=== PATIENT | female | born 1995 | race Two or more races ===

== ENCOUNTER 2020-01-04 15:19 | Emergency (ER) | payer OTHER ==
[~2020-01-04] VITALS: Ht 172.7 cm; Wt 77.1 kg
[2020-01-04 15:24] VITALS: BP 149/107
[2020-01-04 16:17] LABS: APPEARANCE,URINE SLIGHTLY CLOUDY; BILIRUBIN, URINE NEGATIVE (NEGATIVE); GLUCOSE, URINE (UA) NEGATIVE (NEGATIVE); KETONES,URINE 4+ (NEGATIVE); LEUKOCYTE ESTERASE ,URINE 1+ (NEGATIVE); NITRITE,URINE NEGATIVE (NEGATIVE); PH,URINE 7 (4.5-8.0); PROTEIN,URINE 2+ (NEGATIVE); UROBILINOGEN,URINE 1 MG/DL (0.0-1.0)
[2020-01-04 16:18] LABS: COLOR,URINE YELLOW
[2020-01-04 16:22] LABS: BASOPHILS % (AUTO) 1.3 % (0.0-2.0); EOSINOPHILS % (AUTO) 0.1 % (0.0-3.0); HEMATOCRIT 43.8 % (37.0-47.0); HEMOGLOBIN 14.3 G/DL (12.0-16.0); LYMPHOCYTES % (AUTO) 11.7 % (20.0-45.0); MEAN CORPUSCULAR VOLUME 90 FL (80-99); MONOCYTES % (AUTO) 7.2 % (1.0-10.0); NEUTROPHILS % (AUTO) 79.8 % (45.0-75.0); PLATELET COUNT 300 K/UL (150-450); RED BLOOD COUNT 4.87 M/UL (4.20-5.40); RED CELL DISTRIBUTION WIDTH 14.5 % (11.6-14.8); WHITE BLOOD COUNT 9.8 K/UL (4.8-10.8)
[2020-01-04 16:28] LABS: ANION GAP 13 mmol/L (5-15); BLOOD UREA NITROGEN 7 mg/dL (7-18); CALCIUM 9.5 MG/DL (8.5-10.1); CARBON DIOXIDE 29 MMOL/L (21-32); CHLORIDE 98 MMOL/L (98-107); CREATININE 0.8 MG/DL (0.55-1.30); SODIUM 140 MMOL/L (136-145)
[2020-01-04 16:38] LABS: ALANINE AMINOTRANSFERASE 231 U/L (12-78); ALBUMIN 4.5 G/DL (3.4-5.0); ALKALINE PHOSPHATASE 117 U/L (46-116); ASPARTATE AMINO TRANSFERASE 230 U/L (15-37); BILIRUBIN,TOTAL 1.4 MG/DL (0.2-1.0)
[2020-01-04 16:44] LABS: BILIRUBIN,DIRECT 0.4 MG/DL (0.0-0.3)
--- NOTE | 2020-01-04 17:09 | Diagnostic Imaging Report ---
Indication: Shortness of breath Technique: One view of the chest Comparison: none Findings: Body habitus limits evaluation and exam is somewhat underexposed. No definite acute infiltrates, effusions, or congestion. The heart is borderline enlarged. Impression: No definite acute process Borderline cardiomegaly
[2020-01-04] MEDS ORDERED: FAMOTIDINE20 MG ORAL (17:36)
[2020-01-04] MEDS ORDERED: ONDANSETRON ODT4 MG BC (17:36)
[2020-01-04 17:45] VITALS: BP 149/107
--- NOTE | 2020-01-04 18:44 | Emergency Room Report ---
History of Present Illness General Chief Complaint: General Complaint Source: Patient Present Illness HPI 24-year-old female presents the ED for evaluation. Brought in by EMS from home. States that her heart is racing. States she feels short of breath. Denies chest pain. Notes nausea and vomiting. Denies fevers or chills. Denies cough. Patient admits to daily alcohol use. Denies drug use. No other aggravating relieving factors. 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: No Patient History Past Medical History: other Past Surgical History: none Pertinent Family History: none Social History: Reports: alcohol use; Denies: smoking, drug use Now: No Immunizations: UTD Reviewed Nursing Documentation: PMH: Agreed; PSxH: Agreed Nursing Documentation-PMH Past Medical History: No Stated History Review of Systems All Other Systems: negative except mentioned in HPI Physical Exam Vital Signs Date Time Temp Pulse Resp B/P (MAP) Pulse Ox O2 Delivery O2 Flow Rate FiO2 01/04/20 15:13 98.2 86 18 149/107 (121) 98 Room Air Sp02 EP Interpretation: reviewed, normal General Appearance: no apparent distress, alert, GCS 15, non-toxic Head: normocephalic, atraumatic Eyes: bilateral eye normal inspection, bilateral eye PERRL ENT: hearing grossly normal, normal pharynx, no angioedema, normal voice Neck: full range of motion, supple/symm/no masses Respiratory: chest non-tender, lungs clear, normal breath sounds, speaking full sentences Cardiovascular #1: regular rate, rhythm, no edema Cardiovascular #2: 2+ carotid (R), 2+ carotid (L), 2+ radial (R), 2+ radial (L) , 2+ dorsalis pedis (R), 2+ dorsalis pedis (L) Gastrointestinal: normal bowel sounds, non tender, soft, non-distended, no guarding, no rebound Rectal: deferred Genitourinary: normal inspection, no CVA tenderness Musculoskeletal: back normal, normal range of motion, gait/station normal, non- tender Neurologic: alert, motor strength/tone normal, oriented x3, sensory intact, responsive, speech normal Psychiatric: judgement/insight normal, memory normal, mood/affect normal, no suicidal/homicidal ideation Reflexes: 3+ bicep (R), 3+ bicep (L), 3+ tricep (R), 3+ tricep (L), 3+ knee (R) , 3+ knee (L) Skin: no rash Lymphatic: no adenopathy Medical Decision Making Diagnostic Impression: Primary Impression: Alcohol dependence Qualified Codes: F10.29 - Alcohol dependence with unspecified alcohol-induced disorder Additional Impression: Episode of generalized weakness ER Course Hospital Course 24-year-old female presents with shortness of breath, weakness, palpitations. 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 After initial history and physical I ordered labs, EKG, chest x-ray, IVFs labs reviewed- no leukocytosis, hemoglobin/hematocrit stable, troponins negative , electrolytes okay, LFTs elevated EKG - NSR no acute ischemic changes interpreted by me CXR - no acute ischemic changes interpreted by me I discussed findings with patient. Vitals stable. Work-up unremarkable. No distress. I believe symptoms could be related to anxiety versus alcohol dependence. LFTs elevated. Discussed this with the patient. No signs of jaundice. Safe for discharge for close outpatient follow-up. Does not have a PMD. I will provide referrals I. I feel this is a highly complex case requiring extensive working including EKG/Rhythm strip, Xray/CT/US, Blood/urine lab work, repeat exams while in ED, and administration of strong opiates/narcotics for pain control, admission to hospital or close patient follow up. Diagnosis - alcohol dependence, episode of generalisd weakness Stable and discharged to home. Followup with PMD. Return to ED if symptoms recur or worse Labs Test 01/04/20 15:55 White Blood Count 9.8 K/UL (4.8-10.8) Red Blood Count 4.87 M/UL (4.20-5.40) Hemoglobin 14.3 G/DL (12.0-16.0) Hematocrit 43.8 % (37.0-47.0) Mean Corpuscular Volume 90 FL (80-99) Mean Corpuscular Hemoglobin 29.4 PG (27.0-31.0) Mean Corpuscular Hemoglobin Concent 32.7 G/DL (32.0-36.0) Red Cell Distribution Width 14.5 % (11.6-14.8) Platelet Count 300 K/UL (150-450) Mean Platelet Volume 6.2 FL (6.5-10.1) Neutrophils (%) (Auto) 79.8 % (45.0-75.0) Lymphocytes (%) (Auto) 11.7 % (20.0-45.0) Monocytes (%) (Auto) 7.2 % (1.0-10.0) Eosinophils (%) (Auto) 0.1 % (0.0-3.0) Basophils (%) (Auto) 1.3 % (0.0-2.0) Urine Color Yellow Urine Appearance Slightly cloudy Urine pH 7 (4.5-8.0) Urine Specific [place] 1.015 (1.005-1.035) Urine Protein 2+ (NEGATIVE) Urine Glucose (UA) Negative (NEGATIVE) Urine Ketones 4+ (NEGATIVE) Urine Blood 1+ (NEGATIVE) Urine Nitrite Negative (NEGATIVE) Urine Bilirubin Negative (NEGATIVE) Urine Urobilinogen 1 MG/DL (0.0-1.0) Urine Leukocyte Esterase 1+ (NEGATIVE) Urine RBC 2-4 /HPF (0 - 2) Urine WBC 0-2 /HPF (0 - 2) Urine Squamous Epithelial Cells Moderate /LPF (NONE/OCC) Urine Bacteria Few /HPF (NONE) Urine Mucus Many /LPF (NONE/OCC) Urine HCG, Qualitative Negative (NEGATIVE) Sodium Level 140 MMOL/L (136-145) Potassium Level 4.0 MMOL/L (3.5-5.1) Chloride Level 98 MMOL/L (98-107) Carbon Dioxide Level 29 MMOL/L (21-32) Anion Gap 13 mmol/L (5-15) Blood Urea Nitrogen 7 mg/dL (7-18) Creatinine 0.8 MG/DL (0.55-1.30) Estimat Glomerular Filtration Rate > 60 mL/min (>60) Glucose Level 90 MG/DL (74-106) Calcium Level 9.5 MG/DL (8.5-10.1) Total Bilirubin 1.4 MG/DL (0.2-1.0) Direct Bilirubin 0.4 MG/DL (0.0-0.3) Aspartate Amino Transf (AST/SGOT) 230 U/L (15-37) Alanine Aminotransferase (ALT/SGPT) 231 U/L (12-78) Alkaline Phosphatase 117 U/L (46-116) Troponin I 0.000 ng/mL (0.000-0.056) Total Protein 9.0 G/DL (6.4-8.2) Albumin 4.5 G/DL (3.4-5.0) Globulin 4.5 g/dL Albumin/Globulin Ratio 1.0 (1.0-2.7) Salicylates Level < 0.2 ug/mL (2.8-20) Urine Opiates Screen Negative (NEGATIVE) Acetaminophen Level < 2 MCG/ML (10-30) Urine Barbiturates Screen Negative (NEGATIVE) Phencyclidine (PCP) Screen Negative (NEGATIVE) Urine Amphetamines Screen Negative (NEGATIVE) Urine Benzodiazepines Screen Negative (NEGATIVE) Urine Cocaine Screen Negative (NEGATIVE) Urine Marijuana (THC) Screen Negative (NEGATIVE) Serum Alcohol < 3 mg/dL EKG Diagnostic Results Rate: normal Rhythm: NSR ST Segments: no acute changes ASA given to the pt in ED: No Rhythm Strip Diag. Results EP Interpretation: yes Rhythm: NSR, no PVC's, no ectopy Chest X-Ray Diagnostic Results Chest X-Ray Diagnostic Results : Chest X-Ray Ordered: Yes # of Views/Limited/Complete: 1 View Indication: Shortness of Breath EP Interpretation: Yes Interpretation: no consolidation, no effusion, no pneumothorax, no acute cardiopulmonary disease Impression: No acute disease Electronically Signed by: Electronically signed by Jorge Nuno MD Last Vital Signs Date Time Temp Pulse Resp B/P (MAP) Pulse Ox O2 Delivery O2 Flow Rate FiO2 01/04/20 17:45 98.2 18 149/107 98 Room Air 01/04/20 15:24 86 Status: improved Disposition: HOME, SELF-CARE Condition: Stable Scripts Ondansetron Odt* (ZOFRAN ODT*) 4 Mg Tab.rapdis 4 MG BC EVERY 6 HOURS PRN for Nausea & Vomiting, #20 TAB 0 Refills Prov: Jorge Nuno MD 01/04/20 Famotidine* (Pepcid 20mg tablet*) 20 Mg Tablet 20 MG ORAL DAILY, #30 TAB 0 Refills Prov: Jorge Nuno MD 01/04/20 Referrals: Deidre Caldera. [facility] Patient Instructions: Hepatomegaly, [id number] Jorge Nuno MD Jan 04, 2020 18:44
== END 2020-01-04 17:56 | disposition home or self-care (01) ==
LOC: EDBD 15:19 → EMR 16:00
DX: F10.29 Alcohol dependence with unspecified alcohol-induced disorder (principal); R53.1 Weakness
CPT/HCPCS: 36415; 71045; 80053; 80307; 81003; 81025; 82248; 84484; 85025; 93005; 96361; 96374; 96375; G0480; G0481; J2405; J7030; S0028; Z7502; 99284